=== PATIENT | female | born 1930 | race Caucasian/White ===

== ENCOUNTER 2018-03-10 13:39 | Outpatient (RCR) | payer MEDICARE ==
[~2018-03-10 13:39] MED LIST: ALPR0.25 PO; AMLO5TAB2 PO; ASP81TEC PO; BIMA2.5D4 OU; CHOL200035 PO; OMG1KC PO
== END 2018-04-14 15:27 | disposition home or self-care (01) ==
PROVIDERS: ATTEND Nurse Practitioner Family
DX: M16.11 Unilateral primary osteoarthritis, right hip (principal); M70.71 Other bursitis of hip, right hip

== ENCOUNTER → 2018-03-18 | Outpatient (CLI) | payer MEDICARE ==
--- NOTE | 2018-03-18 11:09 | Diagnostic Imaging Report ---
PROCEDURE: MRI lumbar spine. TECHNIQUE: Multiplanar, multisequence MRI of the lumbar spine was performed without contrast. INDICATION: Right posterior hip pain for two months radiating into the right leg. COMPARISON: No prior studies are available for comparison. FINDINGS: There is right convexity lumbar scoliotic curvature. The vertebral body heights are maintained. No acute compression fracture is identified. There is significant multilevel degenerative disc disease with variable disc space narrowing and marginal osteophyte formation. The conus is unremarkable at the L1 level. There does appear to be minimal retrolisthesis of L3 on L4 and anterolisthesis of L4 on L5. T12-L1: There are hypertrophic facet changes. Central canal is widely patent. No neural foraminal stenosis is seen. L1-2: Ligamentous thickening is present as well as broad-based disc/osteophyte complex. No significant central canal narrowing is seen however. There does appear to be mild right neural foraminal narrowing. L2-3: Ligamentous thickening and facet changes with broad-based disc/osteophyte complex is noted. This does result in moderate trefoil stenosis to the canal and bilateral lateral recess narrowing. Mild to moderate right neural foraminal stenosis is seen. L3-4: Significant hypertrophic facet changes and ligamentous thickening with broad-based disc/osteophyte complex is seen. This does result in significant central canal stenosis. Severe bilateral lateral recess stenosis is seen. There is severe left neural foraminal stenosis. Right neural foramen is patent. There does appear to be an extruded disc located in the left lateral recess. L4-5: Marked hypertrophic facet changes are seen. There is ligamentous thickening and broad-based disc/osteophyte complex resulting in severe trefoil stenosis to the central canal. There is severe bilateral lateral recess stenosis with moderate left and mild right neural foraminal stenosis. L5-S1: There are degenerative facet changes present. Central canal is patent. Mild bilateral neural foraminal narrowing is seen. Paraspinous tissues demonstrate a 5.2 cm cyst involving the upper pole left kidney. IMPRESSION: Severe lumbar spondylosis and scoliosis with multilevel central canal, lateral recess and neural foraminal stenosis described level by level above. No acute compression fracture is detected. Dictated by: Dictated on workstation # [id number]
== END ==
LOC: RAD 09:05
PROVIDERS: ATTEND Orthopaedic Surgery
DX: M48.061 Spinal stenosis, lumbar region without neurogenic claudication (principal); M41.86 Other forms of scoliosis, lumbar region; M47.816 Spondylosis without myelopathy or radiculopathy, lumbar region
CPT/HCPCS: 72148